=== PATIENT | female | born 2000 | race Asian ===

== ENCOUNTER 2025-07-25 12:49 | Outpatient (AMB) | payer BC, SELFPAY ==
--- NOTE | 2025-07-25 12:56 | A.OFFPC_ITS ---
Vital Signs 07/25/25 13:06 Height 5 ft 6.54 in Weight 221 lb BMI 35.1 BP 140/79 H Blood Pressure Location Rt brachial Position Sitting Pulse 86 Pulse Source Pulse Oximeter Temp 99.3 F Temp Source Oral Pulse Oximetry (%) 100 Oxygen Delivery Method Room Air Intake Visit Reasons: [employer]/Lymphatic Issue and Fatigue Intake Note: swollen lymph nodes under jaw x 1 year Accompanied by: Self / Same As Patient Allergies No Known Allergies Allergy (Verified 07/25/25 12:56) Tobacco use date assessed: 07/25/25 Dental Screening Dental Screen Date: 07/25/25 Did you have a dental visit in the last 12 months?: Yes HPI HPI Comments History of Present Illness Details History of Present Illness The patient is a 24-year-old female presenting for a checkup and evaluation of persistent lymphadenopathy. Asthma: - The patient has a history of mild inte rmittent asthma, managed with a rescue inhaler. - She has not required intubation and ex periences exacerbations primarily during severe colds. Lymphadenopathy: - The patient reports hard lymph nodes i n the jaw area persisting for over a year, initially noticed while washing her face. - The lymph nodes have not changed in si ze and are present bilaterally. Fatigue: - The patient reports fatigue, which may be related to heavy menstrual bleeding. Heavy menstrual bleeding: - The patient experiences heavy menstrua l bleeding, which has normalized after discontinuing control four months ago. - She has been taking vitamins for the past month without noticeable improvement in energy levels. Review of Systems - Respiratory: Reports mild intermittent asthma exacerbations during colds. Denies dyspnea at rest. - Lymphatic: Reports persistent, hard ly mph nodes in the jaw area for over a year. Denies recent infections prior to noticing lymph nodes. - General: Reports fatigue. Denies recen t weight loss or fever. - Gynecological: Reports heavy menstrual bleeding. Denies irregular cycles post control cessation. 10-point ROS reviewed and negative excep t as noted in HPI Past Medical History - Asthma, mild intermittent, managed wit h rescue inhaler. Health Maintenance - Blood work: Complete blood count, comp rehensive metabolic panel, lipid panel, thyroid function, vitamin levels, and infectious disease screening planned. - Vaccination: Advised to receive flu sh ot before the season starts. Physical Exam General: Well-appearing, in no acute distress. Vital signs: Blood pressure is a little elevated, but likely due to nervousness. HEENT: Normocephalic, atraumatic. PERRLA, EOMI. Conjunctiva clear, sclera anicteric. Oropharynx clear, mucous membranes moist. TMs intact bilaterally. Neck: Supple, lymph nodes in the jaw are hard and have been present for over a year, no thyromegaly, no JVD or carotid bruits. Cardiovascular: RRR, normal S1/S2, no murmurs, rubs, or gallops. Peripheral pulses 2+ and symmetric. No edema. Respiratory: Lungs clear to auscultation bilaterally, no wheezes, rales, or rhonchi. Normal effort. Abdomen: Soft, non-tender, non-distended. Normoactive bowel sounds. No hepatosplenomegaly, no masses. MSK: Full range of motion, no joint swelling or deformity. Normal gait. Skin: Warm, dry, intact. No rashes, lesions, or pallor. Neuro: Alert and oriented x3. Cranial nerves II-XII intact. Strength 5/5 throughout. Sensation intact. Reflexes 2+ symmetric. Normal coordination and gait. Psych: Appropriate mood and affect. Normal judgment and insight. Plan 1. Asthma - Continue current management with rescu e inhaler. Monitor for exacerbations during colds. 2. Lymphadenopathy - Plan to conduct blood work to assess f or underlying causes. Consider ultrasound if necessary based on results. 3. Fatigue - Blood work to evaluate for anemia or t hyroid dysfunction. Monitor energy levels and menstrual cycle changes. 4. Heavy Menstrual Bleeding - Monitor menstrual cycle and continue p renatal vitamins. Evaluate for anemia through blood work. Discussion Notes I discussed with the patient the plan to conduct comprehensive blood work to evaluate her symptoms, including lymphadenopathy and fatigue. We talked about the importance of monitoring her asthma and menstrual cycle. I advised her to get a flu shot before the season starts and reassured her about the availability of care and OB services in the area. Patient was informed and verbally consented to the use of an ambient scribefor clinic note documentation during this visit. Patient Instructions - Continue using your rescue inhaler as needed for asthma. - Get blood work done as discussed to ev aluate your symptoms. - Schedule a follow-up appointment in tw o weeks to discuss blood work results. - Consider getting a flu shot before the flu season begins. - Monitor your menstrual cycle and repor t any significant changes. Total time spent caring for the patient today was 30 minutes. This includes time spent before the visit reviewing the chart, time spent documenting, and time spent reviewing laboratory results, diagnostic imaging, medications, performing a medically necessary evaluation, counseling on diagnoses, care coordination, ordering appropriate tests. [facility] Family History Mother Rheumatoid arteritis Hypercholesteremia Father Hypercholesteremia Social History Housing: Condominium Patient Tobacco Use Status: Never used Tobacco service: No Current occupational status: employed Cognitive needs: No Hearing needs: No Vision needs: Yes (rx glasses) Questionnaire PHQ-9 Over the last 2 weeks, how often have you been bothered by any of the following problems? 1. Little interest or pleasure in doing things: not at all 2. Feeling down, depressed, or hopeless: not at all 3. Trouble falling or staying asleep, or sleeping too much: several days 4. Feeling tired or having little energy: several days 5. Poor appetite or overeating: not at all 6. Feeling bad about yourself - or that you are a failure or have let yourself or your family down: not at all 7. Trouble concentrating on things, such as reading the newspaper or watching television: not at all 8. Moving or speaking so slowly that other people could have noticed. Or the opposite - being so fidgety or restless that you have been moving around a lot more than usual: not at all 9. Thoughts that you would be better off or of hurting yourself in some way: not at all Total score: 2 Source: Developed by Drs. Christopher Schreiber, Jaqueline Littlejohn, Yandel Gomez and colleagues, with an educational elaine from [employer]. Thrive Questionnaire Date Thrive assessed: 07/25/25 I am a: Patient What is your living situation today?: I have a steady place to live Within the past 12 months, did the food you bought not last and you didn't have the money to get more?: Never true Within the past 12 months, did you worry whether your food would run out before you got money to buy more?: Never true Do you have trouble paying for medicines?: No Do you have trouble getting transportation to medical appointments?: No Do you have trouble paying your heating and electricity bill?: No Do you have trouble taking care of your child, family member or friend?: No Are you currently unemployed and looking for a job?: No Are you interested in more education?: No Please select the resources that you would like help with: None Currently or been in a relationship where the following occur: No concerns reported THRIVE Score: 0 AUDIT C Alcohol Use Questionnaire (AUDIT-C) 1. How often do you have a drink containing alcohol?: Never Total Score: 0 ALYSSA-7 AMB Questionnaire ALYSSA-7 Date ALYSSA - 7 assessed: 07/25/25 Feeling nervous, anxious, or on edge: 1 = Several days Not being able to stop or control worryin = Not at all Worrying too much about different things: 1 = Several days Trouble relaxin = Several days Being so restless that it is hard to sit still: 0 = Not at all Becoming easily annoyed or irritable: 0 = Not at all Feeling afraid as if something awful might happen: 0 = Not at all Total ALYSSA-7 score (0-4 normal; 5-9 mild; 10-14 moderate; 15-21 severe): 3 Source: Developed by Drs. Christopher Schrieber, Jaqueline Littlejohn, Yandel Gomez and colleagues, with an educational elaine from [employer]. Physical exam (Primary Care) Vital Signs: Last Vital Signs Temp 99.3 F 07/25/25 13:06 Pulse 86 07/25/25 13:06 BP 140/79 H 07/25/25 13:06 Pulse Ox 100 07/25/25 13:06 Oxygen Delivery Method Room Air 07/25/25 13:06 BMI result Body Mass Index 35.1 Tobacco/Smoking Status: Tobacco use Status Tobacco use date assessed 07/25/25 07/25/25 12:58 Patient Tobacco Use Status Never used Tobacco 07/25/25 13:11 PHQ-9: PHQ-9 Score PHQ-9: Total score 2 07/25/25 12:58 Thrive Assessment: Date of Thrive Assessment Date Thrive assessed 07/25/25 07/25/25 12:58 Currently or been in a relationship where the following occur: No concerns reported Coding Level of Care Code New Pt Level 4 (69366) Diagnoses Anterior cervical lymphadenopathy R59.0 Mild intermittent asthma J45.20 Fatigue R53.83 Menorrhagia N92.0 Class 2 obesity E66.812 Assessment & Plan Assessment & Plan (1) Anterior cervical lymphadenopathy: Code(s): R59.0 - Localized enlarged lymph nodes (2) Mild intermittent asthma: Code(s): J45.20 - Mild intermittent asthma, uncomplicated (3) Fatigue: Code(s): R53.83 - Other fatigue (4) Menorrhagia: Code(s): N92.0 - Excessive and frequent menstruation with regular cycle (5) Class 2 obesity: Code(s): E66.812 - Obesity, class 2 Plan Orders: Orders Comprehensive Met. Panel Today Z13.9 - Encounter for screening, unspecified Hepatitis B Surface Antigen Today Z13.9 - Encounter for screening, unspecified Hepatitis C Antibody Today Z13.9 - Encounter for screening, unspecified HIV Ab/Ag Today Z13.9 - Encounter for screening, unspecified Lipid Panel Today Z13.9 - Encounter for screening, unspecified UA CC w/rflx Micro + Cult Today Z13.9 - Encounter for screening, unspecified Vitamin B12 and Folate Today Z13.9 - Encounter for screening, unspecified Vitamin D 1,25 dihydroxy Today Z13.9 - Encounter for screening, unspecified Complete Blood Count Auto Diff Today Z13.9 - Encounter for screening, unsp ecified Hemoglobin A1c Today Z13.9 - Encounter for screening, unspecified Hepatitis B Surface Antibody Today Z13.9 - Encounter for screening, unspecified TSH reflex Free T4 Today Z13.9 - Encounter for screening, unspecified
[2025-07-25 13:06] VITALS: BP 140/79; PULSE 86; TEMP 37.4; O2SAT 100; BMI 35.1
== END 2025-07-25 13:33 | disposition home or self-care (01) ==
LOC: HO.HMCFMS 12:50
PROVIDERS: PCP Student in an Organized Health Care Education/Training Program; Visit Provider Student in an Organized Health Care Education/Training Program
DX: R59.0 Localized enlarged lymph nodes (principal); J45.20 Mild intermittent asthma, uncomplicated; R53.83 Other fatigue; N92.0 Excessive and frequent menstruation with regular cycle; E66.812 Obesity, class 2

== ENCOUNTER 2025-07-25 12:49 | Outpatient (REF) | payer BC, SELFPAY ==
[2025-07-25 17:36] LABS: Hemoglobin 13.8 g/dl (12.0-16.0); Imm Gran Abs Auto 0.01 X10*3/uL (0.00-0.03); Imm Gran Pct Auto 0.2 % (0.0-0.4); MANUAL DIFF FLAG SCAN; Mean Corpuscular Volume 90.2 fL (80.0-98.0); NRBC Abs Auto 0.000 X10*3/uL (0.0-0.012); NRBC Pct Auto 0.0 /100WBC (0.0-0.2); SCAN SMEAR FLAG 1
[2025-07-25 17:38] LABS: Hematocrit 43.1 % (37.0-47.0); Lymphocytes Absolute Auto 2.6 X10*3/uL (1.2-4.9); Mean Corpuscular HGB Conc 32.0 g/dl (31.0-35.0); Mean Corpuscular Hemoglobin 28.9 pg (27.0-33.0); Platelet Count 207 X10*3/uL (160-400); Red Blood Count 4.78 X10*6/uL (4.20-5.50); White Blood Count 6.3 X10*3/uL (4.8-10.8)
[2025-07-25 17:48] LABS: Appearance Urine Clear; Glucose Urine UA Negative (Negative); PH 8.0 (5.0-9.0); Specific Gravity - Urine 1.015 (1.005-1.025)
[2025-07-25 17:58] LABS: Alanine Aminotransferase 17 U/L (0-31); Albumin Level 4.9 g/dL (3.5-5.0); Alkaline Phosphatase 85 U/L (39-117); Anion Gap 11 (12-20); Aspartate Amino Transferase 19 U/L (5-31); Blood Urea Nitrogen 8 mg/dL (9-16); Calcium 9.3 mg/dL (8.4-10.2); Carbon Dioxide 28 mmol/L (22-29); Chloride 106 mmol/L (96-108); Cholesterol 180 mg/dL (<200); Estimated Glomerular Filt Rate > 60; HDL Cholesterol 43 mg/dL (>40); Potassium 4.3 mmol/L (3.3-5.1); Sodium 141 mmol/L (135-145); Total Protein 8.0 g/dL (6.5-8.0); Triglycerides 146 mg/dL (<150)
[2025-07-25 18:01] LABS: PLT ABN DIST 1
[2025-07-25 18:21] LABS: Folate 12.4 ng/mL (> or = 4.0); Vitamin B12 442 pg/mL (200-900)
[2025-07-26 04:31] LABS: HBS Num1 59.16 mIU/mL (0-7.99); HBsAGNum1 0.31 S/CO (0.00-0.99); HIV Num 1 0.10 S/CO (0.00-0.99); Hepatitis B Surface Antigen Negative (Negative); ~HepC Num1 0.81 S/CO (0.00-0.79); ~Hepatitis B Surface Antibody REACTIVE (Nonreactive)
[2025-07-26 05:20] LABS: ~HepC Num2 0.85; ~HepC Num3 0.87; ~Hepatitis C Antibody GRAYZONE (Nonreactive)
[2025-07-29 16:13] LABS: VITAMIN D (1,25 OH) D3 35 pg/mL; Vit D (1,25-Dihydroxy) Total 35 pg/mL (18-72); Vitamin D (1,25 OH) D2 <8 pg/mL
== END 2025-07-25 12:50 | disposition home or self-care (01) ==
LOC: HO.HKASLDS 12:49
PROVIDERS: PCP Student in an Organized Health Care Education/Training Program; Visit Provider Student in an Organized Health Care Education/Training Program
DX: J45.20 Mild intermittent asthma, uncomplicated (principal); R59.1 Generalized enlarged lymph nodes; R53.83 Other fatigue; N92.4 Excessive bleeding in the premenopausal period; R59.0 Localized enlarged lymph nodes; N92.0 Excessive and frequent menstruation with regular cycle; E66.812 Obesity, class 2
CPT/HCPCS: 36415; 80053; 80061; 81003; 82607; 82652; 82746; 83036; 84443; 85025; 86706; 86803; 87340; 87389; 96127

== ENCOUNTER 2025-08-15 08:35 | Outpatient (AMB) | payer BC, SELFPAY ==
[2025-08-15 08:40] VITALS: BP 126/76; PULSE 85; RESP 16; TEMP 36.9; O2SAT 94; BMI 36.5
--- NOTE | 2025-08-15 08:40 | A.OFFPC_ITS ---
Vital Signs 08/15/25 08:40 Height 5 ft 6.54 in Weight 230 lb BMI 36.5 BP 126/76 Blood Pressure Location Rt brachial Position Sitting Respiration 16 Pulse 85 Pulse Source Pulse Oximeter Temp 98.4 F Temp Source Oral Pulse Oximetry (%) 94 Oxygen Delivery Method Room Air Intake Visit Reasons: 2 wk f/u Intake Note: swollen lymph nodes under jaw x 1 year Accompanied by: Self / Same As Patient Allergies No Known Allergies Allergy (Verified 08/15/25 08:40) Tobacco use date assessed: 08/15/25 Dental Screening Dental Screen Date: 08/15/25 Did you have a dental visit in the last 12 months?: Yes HPI HPI Comments History of Present Illness0 Details History of Present Illness The patient is a 25-year-old female presenting for review of laboratory results. Mildly elevated LDL cholesterol: Recent lab work revealed a slightly elevated LDL cholesterol level of 108 mg/dL. Indeterminate Hepatitis C antibody test: A recent Hepatitis C antibody test returned an indeterminate result. Preconception care: The patient is currently taking vitamins for folate supplementation in preparation for a future . Medications: - vitamins: The patient is laine ng vitamins for folate supplementation. Social History: - Diet: The patient was advised to reduc e her intake of cheeses and eggs to manage her slightly elevated LDL cholesterol. - Family planning: The patient is kristopher grover for a future and was advised to continue taking vitamins to prevent potential neural tube defects. Diagnostic Results: - Complete Blood Count: White blood cell count, red blood cell count, hemoglobin, and hematocrit are normal. - Comprehensive Metabolic Panel: Electro lytes including sodium and potassium, renal function, liver function, total protein, and calcium are all normal. - Glucose: Random glucose and Hemoglobin A1c are normal, with no indication of prediabetes or diabetes. - Lipid Panel: Triglycerides are less th an 150 mg/dL, and total cholesterol is less than 200 mg/dL. - LDL Cholesterol: Mildly elevated at 10 8 mg/dL. - HDL Cholesterol: Normal at 40 mg/dL. - Vitamins: Vitamin B12 is 442, and Tressa min D and folate levels are good. - Thyroid Function Test: Normal. - Urinalysis: Normal. - Infectious Disease Screening: Hepatiti s B and HIV tests are negative. - Hepatitis C Antibody: The test returne d an indeterminate result. Past Medical History Health Maintenance - The patient's laboratory tests were re viewed, including a complete blood count, metabolic panel, lipid panel, and vitamin levels. - Infectious disease screening was condu cted, with negative results for HIV and hepatitis B, and an indeterminate result for hepatitis C. - Preconception counseling was provided, advising the patient to continue taking vitamins for folate supplementation to prevent neural tube defects in a future . - Dietary counseling was given to addres s the mildly elevated LDL cholesterol. PFSH Family History Mother Rheumatoid arteritis Hypercholesteremia Father Hypercholesteremia Social History Housing: Condominium Patient Tobacco Use Status: Never used Tobacco service: No Current occupational status: employed Cognitive needs: No Hearing needs: No Vision needs: Yes (rx glasses) Questionnaire Thrive Questionnaire Date Thrive assessed: 07/25/25 I am a: Patient What is your living situation today?: I have a steady place to live Within the past 12 months, did the food you bought not last and you didn't have the money to get more?: Never true Within the past 12 months, did you worry whether your food would run out before you got money to buy more?: Never true Do you have trouble paying for medicines?: No Do you have trouble getting transportation to medical appointments?: No Do you have trouble paying your heating and electricity bill?: No Do you have trouble taking care of your child, family member or friend?: No Do you have trouble with day-to-day activities such as bathing, preparing meals, shopping, managing finances, etc.?: No Are you currently unemployed and looking for a job?: No Are you interested in more education?: No Please select the resources that you would like help with: None Currently or been in a relationship where the following occur: No concerns reported THRIVE Score: 0 ALYSSA-7 AMB Questionnaire ALYSSA-7 Date ALYSSA - 7 assessed: 07/25/25 Source: Developed by Drs. Christopher Schreiber, Jaqueline Littlejohn, Yandel Gomez and colleagues, with an educational elaine from [employer]. Review of Systems Narrative Review of Systems - General: The patient denies any specific concerns when asked. 10-point ROS reviewed and negative except as noted in HPI Physical exam (Primary Care) Vital Signs: Last Vital Signs Temp 98.4 F 08/15/25 08:40 Pulse 85 08/15/25 08:40 Resp 16 08/15/25 08:40 BP 126/76 08/15/25 08:40 Pulse Ox 94 08/15/25 08:40 Oxygen Delivery Method Room Air 08/15/25 08:40 BMI result Body Mass Index 36.5 Tobacco/Smoking Status: Tobacco use Status Tobacco use date assessed 08/15/25 08/15/25 08:47 Patient Tobacco Use Status Never used Tobacco 08/15/25 08:47 Thrive Assessment: Date of Thrive Assessment Date Thrive assessed 07/25/25 08/15/25 08:47 Currently or been in a relationship where the following occur: No concerns reported Narrative Physical Exam General: Well-appearing, in no acute distress. Vital signs: Blood pressure looks good. HEENT: Normocephalic, atraumatic. PERRLA, EOMI. Conjunctiva clear, sclera anic teric. Oropharynx clear, mucous membranes moist. TMs intact bilaterally. Neck: Supple, no lymphadenopathy, no thyromegaly, no JVD or carotid bruits. Cardiovascular: RRR, normal S1/S2, no murmurs, rubs, or gallops. Peripheral pulses 2+ and symmetric. No edema. Respiratory: Lungs clear to auscultation bilaterally, no wheezes, rales, or rhonchi. Normal effort. Abdomen: Soft, non-tender, non-distended. Normoactive bowel sounds. No hepatosplenomegaly, no masses. MSK: Full range of motion, no joint swelling or deformity. Normal gait. Skin: Warm, dry, intact. No rashes, lesions, or pallor. Neuro: Alert and oriented x3. Cranial nerves II-XII intact. Strength 5/5 throughout. Sensation intact. Reflexes 2+ symmetric. Normal coordination and gait. Psych: Appropriate mood and affect. Normal judgment and insight. Coding Level of Care Code Est Pt Level 3 (93429) Diagnoses Elevated LDL cholesterol level E78.00 Class 2 obesity E66.9 Assessment & Plan Assessment & Plan (1) Elevated LDL cholesterol level: Code(s): E78.00 - Pure hypercholesterolemia, unspecified (2) Class 2 obesity: Code(s): E66.9 - Obesity, unspecified Plan Consent Patient was informed and verbally consented to the use of an ambient scribe for clinic note documentation during this visit. Plan 1. Mildly Elevated Ldl Cholesterol - The patient was advised to reduce her dietary intake of cheeses and eggs. - The LDL level will be re-evaluated in 3 months. 2. Indeterminate Hepatitis C Antibody Test - The indeterminate result is not considered worrisome at this time. - Plan to repeat the hepatitis C antibody test in 3 to 6 months. 3. Preconception Health Maintenance - The patient was advised to continue taking her vitamins to ensure adequate folate levels for a future . Discussion Notes I reviewed the patient's recent lab results, which were largely normal. I noted a mildly elevated LDL cholesterol of 108 and recommended dietary modifications, specifically reducing intake of cheese and eggs. We discussed the indeterminate Hepatitis C antibody result, and I reassured her that it is not concerning at this point but recommended a repeat test in 3 to 6 months for confirmation. I advised her to continue taking vitamins to maintain adequate folate levels in preparation for a future , which she is currently doing. We agreed on a follow-up visit in 3 months to recheck the labs. Patient Instructions - Reduce your intake of foods high in cholesterol, like cheeses and eggs. - Continue taking your vitamins as you have been. - Schedule a follow-up appointment in 3 months to repeat some lab tests. - There is nothing to worry about regarding your lab results at this time. Medical Decision Making The patient is a 25-year-old female who presented for a review of her routine lab work. The results were reassuring, with the exception of a mildly elevated LDL cholesterol at 108 and an indeterminate Hepatitis C antibody test. Given the minimal elevation of the LDL, a conservative approach with dietary counseling is clinically appropriate at this time, with a plan to re-evaluate. The indeterminate Hepatitis C result is likely a test artifact and poses a low risk; however, a confirmatory repeat test in 3-6 months is warranted to definitively rule out infection. Given her age and the discussion around vitamins, it is prudent to reinforce the importance of continuing folate supplementation for preconception health. A 3-month follow-up is scheduled to monitor the LDL and repeat the Hepatitis C test. Total time spent caring for the patient today was 20 minutes. This includes time spent before the visit reviewing the chart, time spent documenting, and time spent reviewing laboratory results, diagnostic imaging, medications, performing a medically necessary evaluation, counseling on diagnoses, care coordination.
== END 2025-08-15 08:58 | disposition home or self-care (01) ==
LOC: HO.HMCFMS 08:36
PROVIDERS: PCP Student in an Organized Health Care Education/Training Program; Visit Provider Student in an Organized Health Care Education/Training Program
DX: E78.00 Pure hypercholesterolemia, unspecified (principal); E66.9 Obesity, unspecified